=== PATIENT | male | born 1970 | race Hispanic/Latino ===

== ENCOUNTER 2017-08-30 01:35 | Emergency (ER) | payer OTHER ==
[2017-08-30] MEDS ORDERED: XYLOCAINE 1%/ EPI 1:100,000 INFILTRATI ONE (02:57)
[2017-08-30] MEDS ORDERED: NACL 0.9% 500 ML IR ONE (03:04)
[2017-08-30] MEDS ORDERED: NACL 0.9% IR ONE (03:13)
[2017-08-30] MEDS ORDERED: ATIVAN PO ONE (04:26)
[2017-08-30] MEDS ORDERED: AUGMENTIN 875 MG PO ONE (04:26)
[2017-08-30] MEDS ORDERED: BOOSTRIX IM ONE (04:26)
--- NOTE | 2017-08-30 04:46 | Emergency Department Report ---
ED Animal Bite HPI - General Chief Complaint: Animal Bite Stated Complaint: FACIAL DOG BITE Time Seen by Provider: 08/30/17 02:57 Source: patient Mode of arrival: Stretcher Limitations: No Limitations - History of Present Illness Initial Comments: 47-year-old male with a past medical history of anxiety presents to the hospital complains of dog bite to chin that occurred 45 minutes prior to arrival. Patient states his own dog bit him in his chin. Dog's vaccinations are up-to-date. Patient does not know his last tetanus. He complains of a fast 10 pain to the chin and states that heavy bleeding has resolved with wound dressing. - Related Data Home Medications Medication Instructions Recorded Confirmed Last Taken ALPRAZolam [Xanax TAB] 1 mg PO TID PRN 08/30/17 08/30/17 Unknown Triazolam 0.125 mg PO PRN PRN 08/30/17 08/30/17 Unknown lamoTRIgine [LaMICtal] 150 mg PO QDAY 08/30/17 08/30/17 Unknown Previous Rx's Medication Instructions Recorded Last Taken Type Amoxicillin/K Clav Tab [Augmentin 1 tab PO Q12HR #10 tab 08/30/17 Unknown Rx 875 mg] Allergies Allergy/AdvReac Type Severity Reaction Status Date / Time prednisone AdvReac Vomiting Verified 08/30/17 02:34 ED Review of Systems ROS: Stated complaint: FACIAL DOG BITE Other details as noted in HPI Comment: All other systems reviewed and negative Other: Constitutional: No fevers chills Eyes: No eye pain visual changes ENT: No ear pain or throat pain Neck: Denies pain Respiratory: Denies cough wheezing shortness of breath Cardiovascular: Denies chest pain, palpitations, syncope GI: Denies abdominal pain, nausea, vomiting, diarrhea : Denies dysuria, urinary frequency, or urgency Musculoskeletal: Denies back pain, joint swelling Skin: as per hpi Neurologic: Denies headache, numbness, weakness Psychiatric: Chronic anxiety ED Past Medical Hx - Past Medical History Previous Medical History?: No Hx Hypertension: No Hx CVA: No Hx Heart Attack/AMI: No Hx Congestive Heart Failure: No Hx Diabetes: No Hx Deep Vein Thrombosis: No Hx Pulmonary Embolism: No Hx Liver Disease: No Hx Renal Disease: No Hx of Cancer: No Hx Sickle Cell Disease: No Hx Arthritis: No Hx Headaches / Migraines: No Hx Seizures: No Hx Kidney Stones: No Hx Psychiatric Treatment: No Hx Asthma: No Hx COPD: No Hx Tuberculosis: No Hx Dementia: No Hx HIV: No Additional medical history: PTSD - Surgical History Past Surgical History?: Yes Additional Surgical History: ortho sugery on L knee x6 & R ankle x1 - Social History Smoking Status: Never Smoker Substance Use Type: None - Medications Home Medications: Home Medications Medication Instructions Recorded Confirmed Last Taken Type ALPRAZolam [Xanax TAB] 1 mg PO TID PRN 08/30/17 08/30/17 Unknown History Amoxicillin/K Clav Tab [Augmentin 1 tab PO Q12HR #10 tab 08/30/17 Unknown Rx 875 mg] Triazolam 0.125 mg PO PRN PRN 08/30/17 08/30/17 Unknown History lamoTRIgine [LaMICtal] 150 mg PO QDAY 08/30/17 08/30/17 Unknown History ED Physical Exam - General Limitations: No Limitations - Other Other exam information: General: No limitations, patient is alert in no acute distress Head exam: Chin laceration Eyes exam: Normal appearance ENT: Moist mucous membrane, normal oropharynx, laceration does not extend to the oropharynx Neck exam: Normal inspection, full range of motion Respiratory exam: Clear to auscultation bilateral, no wheezes, rales, crackles Cardiovascular: Normal rate and rhythm, normal heart sounds Abdomen: Soft, nondistended, and nontender, with normal bowel sounds, no rebound, or guarding Extremity: Full range of motion normal inspection no deformity Back: Normal Inspection, full range of motion, no tenderness Neurologic: Alert, oriented x3, cranial nerves intact, no motor or sensory deficit Psychiatric: normal affect, normal mood Skin: 4.5 cm concave deep .5 cm laceration to anterior chin with minimal bleeding ED Course Vital Signs 08/30/17 08/30/17 08/30/17 02:20 02:22 02:30 Temperature 98.7 F Pulse Rate 103 H 105 H Respiratory 19 20 Rate Blood Pressure 124/82 124/82 O2 Sat by Pulse 95 95 95 Oximetry 08/30/17 08/30/17 08/30/17 02:46 03:00 03:16 Temperature Pulse Rate 107 H 108 H 100 H Respiratory 19 19 35 H Rate Blood Pressure 124/82 123/90 124/82 O2 Sat by Pulse 96 97 94 Oximetry 08/30/17 08/30/17 08/30/17 03:30 03:33 03:46 Temperature Pulse Rate 95 H 94 H Respiratory 15 18 17 Rate Blood Pressure 124/82 124/82 O2 Sat by Pulse 94 97 93 Oximetry 08/30/17 04:00 Temperature Pulse Rate 103 H Respiratory 18 Rate Blood Pressure 124/82 O2 Sat by Pulse 99 Oximetry - Reevaluation(s) Reevaluation #1: 08/30/17 04:58 Patient given Augmentin, tetanus, and Ativan for chronic anxiety. - Laceration /Wound Repair Face Wound Location: face (chin) Wound Length (cm): 4 (4.5) Wound's Depth, Shape: linear (concave) Irrigated w/ Saline (ccs): 500 (diluted iodine) Betadine Prep?: Yes Anesthesia: Lidocaine w/ Epi Volume Anesthetic (ccs): 7 Wound Debrided: minimal Wound Repaired With: sutures Suture Size/Type: 4:0, nylon Number of Sutures: 9 Layer Closure?: No Sterile Dressing Applied?: Yes Critical Care Time: No Critical care attestation.: If time is entered above; I have spent that time in minutes in the direct care of this critically ill patient, excluding procedure time. ED Disposition Clinical Impression: Dog bite of face, Anxiety Disposition: DC-01 TO HOME OR SELFCARE Is pt being admited?: No Does the pt Need Aspirin: No Condition: Stable Instructions: Animal Bite (ED) Additional Instructions: Dog bites are at risk for infection. Please to continue to evaluate your phone for signs of infection as discussed in as indicated by discharge instructions. It is very important thay you take antibiotics as prescribed to try to prevent infection. You may return in 5 days or follow-up with the primary care doctor in 5 days for stitches removal. Please return if symptoms worsen Prescriptions: Amoxicillin/K Clav Tab [Augmentin 875 mg] 1 tab PO Q12HR #10 tab Referrals: AMALIA ALVA MD [Primary Care Provider] - 3-[address] [facility] [Provider Group] - 3-5 Days ANGEL SHIN JR, MD [Staff Physician] - 3-5 Days Time of Disposition: 04:58
[2017-08-30] MEDS ORDERED: NORCO 5/325 PO ONE (05:25)
[2017-08-30 06:09] VITALS: BP 131/93
== END 2017-08-30 06:24 | disposition home or self-care (01) ==
LOC: ED 01:35
DX: S01.85XA Open bite of other part of head, initial encounter (principal); F41.9 Anxiety disorder, unspecified; Z88.8 Allergy status to other drugs, medicaments and biological substances; W54.0XXA Bitten by dog, initial encounter; Y93.9 Activity, unspecified; Y92.89 Other specified places as the place of occurrence of the external cause; Y99.9 Unspecified external cause status
CPT/HCPCS: 90471; 90715

== ENCOUNTER 2017-12-09 09:40 | Emergency (ER) | payer OTHER ==
--- NOTE | 2017-12-09 10:37 | Emergency Department Report ---
ED Altered Mental Status HPI - General Chief Complaint: Altered Mental Status Stated Complaint: AMS Time Seen by Provider: 12/09/17 10:21 Source: EMS Mode of arrival: Stretcher Limitations: Altered Mental Status - History of Present Illness Initial Comments: Patient is a 31-l-ndnp-old male who is presenting with altered mental status and probable drug use. Patient states he took some large amount of drugs was brought here for altered mental status evaluation. Patient was combative on arrival. Patient is denying any homicidal suicidal thoughts or any other symptoms mainly chest pain shortness of breath nausea vomiting diarrhea. MD Complaint: altered mental status, confusion -: unknown Severity: moderate Context: drug abuse Associated Symptoms: denies other symptoms - Related Data Home Medications Medication Instructions Recorded Confirmed Last Taken ALPRAZolam [Xanax TAB] 1 mg PO TID PRN 08/30/17 08/30/17 Unknown Triazolam 0.125 mg PO PRN PRN 08/30/17 08/30/17 Unknown lamoTRIgine [LaMICtal] 150 mg PO QDAY 08/30/17 08/30/17 Unknown Previous Rx's Medication Instructions Recorded Last Taken Type Amoxicillin/K Clav Tab [Augmentin 1 tab PO Q12HR #10 tab 08/30/17 Unknown Rx 875 mg] HYDROcodone/APAP 5-325 [[place] 1 each PO Q6HR PRN #15 tablet 08/30/17 Unknown Rx 5/325] Allergies Allergy/AdvReac Type Severity Reaction Status Date / Time prednisone AdvReac Vomiting Verified 08/30/17 02:34 ED Review of Systems ROS: Stated complaint: AMS Other details as noted in HPI Comment: Unobtainable due to pts medical conditions ED Past Medical Hx - Past Medical History Previous Medical History?: Yes Hx Hypertension: No Hx CVA: No Hx Heart Attack/AMI: No Hx Congestive Heart Failure: No Hx Diabetes: No Hx Deep Vein Thrombosis: No Hx Pulmonary Embolism: No Hx Liver Disease: No Hx Renal Disease: No Hx Sickle Cell Disease: No Hx Arthritis: No Hx Headaches / Migraines: No Hx Seizures: No Hx Kidney Stones: No Hx Psychiatric Treatment: No Hx Asthma: No Hx COPD: No Hx Tuberculosis: No Hx Dementia: No Hx HIV: No Additional medical history: PTSD - Surgical History Past Surgical History?: Yes Additional Surgical History: ortho sugery on L knee x6 & R ankle x1 - Social History Smoking Status: Unknown if ever smoked - Medications Home Medications: Home Medications Medication Instructions Recorded Confirmed Last Taken Type ALPRAZolam [Xanax TAB] 1 mg PO TID PRN 08/30/17 08/30/17 Unknown History Amoxicillin/K Clav Tab [Augmentin 1 tab PO Q12HR #10 tab 08/30/17 Unknown Rx 875 mg] HYDROcodone/APAP 5-325 [[place] 1 each PO Q6HR PRN #15 tablet 08/30/17 Unknown Rx 5/325] Triazolam 0.125 mg PO PRN PRN 08/30/17 08/30/17 Unknown History lamoTRIgine [LaMICtal] 150 mg PO QDAY 08/30/17 08/30/17 Unknown History ED Physical Exam - General Limitations: Altered Mental Status General appearance: alert, appears intoxicated - Head Head exam: Present: atraumatic, normocephalic - Eye Eye exam: Present: normal appearance - ENT ENT exam: Present: mucous membranes moist - Neck Neck exam: Present: normal inspection - Respiratory Respiratory exam: Present: normal lung sounds bilaterally. Absent: respiratory distress, wheezes, rales, rhonchi - Cardiovascular Cardiovascular Exam: Present: regular rate, normal rhythm. Absent: systolic murmur, diastolic murmur, rubs, gallop - GI/Abdominal GI/Abdominal exam: Present: soft, normal bowel sounds. Absent: distended, tenderness, guarding, rebound - Rectal Rectal exam: Present: deferred - Extremities Exam Extremities exam: Present: normal inspection - Back Exam Back exam: Present: normal inspection - Neurological Exam Neurological exam: Present: alert, oriented X3, abnormal gait - Psychiatric Psychiatric exam: Present: normal affect, normal mood, agitated - Skin Skin exam: Present: warm, dry, intact, normal color. Absent: rash ED Course Vital Signs 12/09/17 11:45 Temperature 98.4 F Pulse Rate 82 Respiratory 18 Rate Blood Pressure 139/95 [Left] O2 Sat by Pulse 98 Oximetry - Lab Data Result diagrams: 12/09/17 11:30 12/09/17 11:30 Lab Results 12/09/17 12/09/17 12/09/17 Range/Units 11:05 11:05 11:30 WBC (4.5-11.0) K/mm3 RBC (3.65-5.03) M/mm3 Hgb (11.8-15.2) gm/dl Hct (35.5-45.6) % MCV (84-94) fl MCH (28-32) pg MCHC (32-34) % RDW (13.2-15.2) % Plt Count (140-440) K/mm3 Lymph % (Auto) (13.4-35.0) % [place] % (Auto) (0.0-7.3) % Eos % (Auto) (0.0-4.3) % Baso % (Auto) (0.0-1.8) % Lymph # (1.2-5.4) K/mm3 [place] # (0.0-0.8) K/mm3 Eos # (0.0-0.4) K/mm3 Baso # (0.0-0.1) K/mm3 Seg Neutrophils % (40.0-70.0) % Seg Neutrophils # (1.8-7.7) K/mm3 Sodium 141 (137-145) mmol/L Potassium 3.7 (3.6-5.0) mmol/L Chloride 97.3 L (98-107) mmol/L Carbon Dioxide 26 (22-30) mmol/L Anion Gap 21 mmol/L BUN 13 (9-20) mg/dL Creatinine 1.2 (0.8-1.5) mg/dL Estimated GFR > 60 ml/min BUN/Creatinine Ratio 11 % Glucose 93 (75-100) mg/dL Calcium 9.1 (8.4-10.2) mg/dL Urine Color Yellow (Yellow) Urine Turbidity Clear (Clear) Urine pH 5.0 (5.0-7.0) Ur Specific [place] 1.012 (1.003-1.030) Urine Protein <15 mg/dl (Negative) mg/dL Urine Glucose (UA) Neg (Negative) mg/dL Urine Ketones Tr (Negative) mg/dL Urine Blood Neg (Negative) Urine Nitrite Neg (Negative) Urine Bilirubin Neg (Negative) Urine Urobilinogen < 2.0 (<2.0) mg/dL Ur Leukocyte Esterase Neg (Negative) Urine WBC (Auto) 2.0 (0.0-6.0) /HPF Urine RBC (Auto) 1.0 (0.0-6.0) /HPF U Epithel Cells (Auto) < 1.0 (0-13.0) /HPF Urine Bacteria (Auto) 1+ (Negative) /HPF Urine Mucus Few /HPF Salicylates (2.8-20.0) mg/dL Urine Opiates Screen Presumptive negative Urine Methadone Screen Presumptive negative Acetaminophen (10.0-30.0) ug/mL Ur Barbiturates Screen Presumptive negative Ur Phencyclidine Scrn Presumptive negative Ur Amphetamines Screen Presumptive positive U Benzodiazepines Scrn Presumptive positive Urine Cocaine Screen Presumptive negative U Marijuana (THC) Screen Presumptive negative Drugs of Abuse Note Disclamer Plasma/Serum Alcohol (0-0.07) gm% 12/09/17 12/09/17 12/09/17 Range/Units 11:30 11:30 11:30 WBC 8.2 (4.5-11.0) K/mm3 RBC 4.57 (3.65-5.03) M/mm3 Hgb 14.2 (11.8-15.2) gm/dl Hct 41.8 (35.5-45.6) % MCV 92 (84-94) fl MCH 31 (28-32) pg MCHC 34 (32-34) % RDW 13.2 (13.2-15.2) % Plt Count 240 (140-440) K/mm3 Lymph % (Auto) 13.5 (13.4-35.0) % [place] % (Auto) 9.8 H (0.0-7.3) % Eos % (Auto) 0.5 (0.0-4.3) % Baso % (Auto) 1.3 (0.0-1.8) % Lymph # 1.1 L (1.2-5.4) K/mm3 [place] # 0.8 (0.0-0.8) K/mm3 Eos # 0.0 (0.0-0.4) K/mm3 Baso # 0.1 (0.0-0.1) K/mm3 Seg Neutrophils % 74.9 H (40.0-70.0) % Seg Neutrophils # 6.1 (1.8-7.7) K/mm3 Sodium (137-145) mmol/L Potassium (3.6-5.0) mmol/L Chloride (98-107) mmol/L Carbon Dioxide (22-30) mmol/L Anion Gap mmol/L BUN (9-20) mg/dL Creatinine (0.8-1.5) mg/dL Estimated GFR ml/min BUN/Creatinine Ratio % Glucose (75-100) mg/dL Calcium (8.4-10.2) mg/dL Urine Color (Yellow) Urine Turbidity (Clear) Urine pH (5.0-7.0) Ur Specific [place] (1.003-1.030) Urine Protein (Negative) mg/dL Urine Glucose (UA) (Negative) mg/dL Urine Ketones (Negative) mg/dL Urine Blood (Negative) Urine Nitrite (Negative) Urine Bilirubin (Negative) Urine Urobilinogen (<2.0) mg/dL Ur Leukocyte Esterase (Negative) Urine WBC (Auto) (0.0-6.0) /HPF Urine RBC (Auto) (0.0-6.0) /HPF U Epithel Cells (Auto) (0-13.0) /HPF Urine Bacteria (Auto) (Negative) /HPF Urine Mucus /HPF Salicylates < 0.3 L (2.8-20.0) mg/dL Urine Opiates Screen Urine Methadone Screen Acetaminophen (10.0-30.0) ug/mL Ur Barbiturates Screen Ur Phencyclidine Scrn Ur Amphetamines Screen U Benzodiazepines Scrn Urine Cocaine Screen U Marijuana (THC) Screen Drugs of Abuse Note Plasma/Serum Alcohol < 0.01 (0-0.07) gm% 12/09/17 Range/Units 11:30 WBC (4.5-11.0) K/mm3 RBC (3.65-5.03) M/mm3 Hgb (11.8-15.2) gm/dl Hct (35.5-45.6) % MCV (84-94) fl MCH (28-32) pg MCHC (32-34) % RDW (13.2-15.2) % Plt Count (140-440) K/mm3 Lymph % (Auto) (13.4-35.0) % [place] % (Auto) (0.0-7.3) % Eos % (Auto) (0.0-4.3) % Baso % (Auto) (0.0-1.8) % Lymph # (1.2-5.4) K/mm3 [place] # (0.0-0.8) K/mm3 Eos # (0.0-0.4) K/mm3 Baso # (0.0-0.1) K/mm3 Seg Neutrophils % (40.0-70.0) % Seg Neutrophils # (1.8-7.7) K/mm3 Sodium (137-145) mmol/L Potassium (3.6-5.0) mmol/L Chloride (98-107) mmol/L Carbon Dioxide (22-30) mmol/L Anion Gap mmol/L BUN (9-20) mg/dL Creatinine (0.8-1.5) mg/dL Estimated GFR ml/min BUN/Creatinine Ratio % Glucose (75-100) mg/dL Calcium (8.4-10.2) mg/dL Urine Color (Yellow) Urine Turbidity (Clear) Urine pH (5.0-7.0) Ur Specific [place] (1.003-1.030) Urine Protein (Negative) mg/dL Urine Glucose (UA) (Negative) mg/dL Urine Ketones (Negative) mg/dL Urine Blood (Negative) Urine Nitrite (Negative) Urine Bilirubin (Negative) Urine Urobilinogen (<2.0) mg/dL Ur Leukocyte Esterase (Negative) Urine WBC (Auto) (0.0-6.0) /HPF Urine RBC (Auto) (0.0-6.0) /HPF U Epithel Cells (Auto) (0-13.0) /HPF Urine Bacteria (Auto) (Negative) /HPF Urine Mucus /HPF Salicylates (2.8-20.0) mg/dL Urine Opiates Screen Urine Methadone Screen Acetaminophen < 15.0 (10.0-30.0) ug/mL Ur Barbiturates Screen Ur Phencyclidine Scrn Ur Amphetamines Screen U Benzodiazepines Scrn Urine Cocaine Screen U Marijuana (THC) Screen Drugs of Abuse Note Plasma/Serum Alcohol (0-0.07) gm% - Medical Decision Making Patient's was consulted over the phone about the patient's presentation. Patient's states that whenever he gets his prescription for Xanax she normally gives him his prescriptions when he tries to manage this medication himself he ends up overdosing and oftentimes ends up in the hospital. Patient is not homicidal suicidal he is beginning to sober up at this time and will be discharged home Critical care attestation.: If time is entered above; I have spent that time in minutes in the direct care of this critically ill patient, excluding procedure time. ED Disposition Clinical Impression: Benzodiazepine abuse Disposition: DC-01 TO HOME OR SELFCARE Is pt being admited?: No Does the pt Need Aspirin: No Condition: Stable Referrals: SINDY SHETH MD [Primary Care Provider] - 3-5 Days
[2017-12-09 11:35] LABS: Bacteria,Urine 1+ /HPF (Negative); Bilirubin,Urine NEG (Negative); Blood,Urine NEG (Negative); Color,Urine Yellow (Yellow); Mucus,Urine FEW /HPF; Nitrite,Urine NEG (Negative); Protein,Urine <15 mg/dL mg/dL (Negative); Urobilinogen,Urine < 2.0 mg/dL (<2.0)
[2017-12-09 11:52] LABS: Cannabinoid Screen,Urine PRESUMPTIVE NEGATIVE; Cocaine Screen,Urine PRESUMPTIVE NEGATIVE; Methadone Screen,Urine PRESUMPTIVE NEGATIVE; Opiate Screen,Urine PRESUMPTIVE NEGATIVE
[2017-12-09 12:04] LABS: Amphetamine Screen,Urine PRESUMPTIVE POSITIVE; Benzodiazepines Screen,Urine PRESUMPTIVE POSITIVE
[2017-12-09 12:18] LABS: Basophils # (Auto) 0.1 K/mm3 (0.0-0.1); Basophils % (Auto) 1.3 % (0.0-1.8); Eosinophils % (Auto) 0.5 % (0.0-4.3); Hematocrit 41.8 % (35.5-45.6); Hemoglobin 14.2 gm/dl (11.8-15.2); Lymphocytes # (Auto) 1.1 K/mm3 (1.2-5.4); Lymphocytes % (Auto) 13.5 % (13.4-35.0); Mean Corpuscular HGB Conc 34 % (32-34); Mean Corpuscular Hemoglobin 31 pg (28-32); Mean Corpuscular Volume 92 fl (84-94); Monocytes # (Auto) 0.8 K/mm3 (0.0-0.8); Monocytes % (Auto) 9.8 % (0.0-7.3); Platelet Count 240 K/mm3 (140-440); Red Blood Count 4.57 M/mm3 (3.65-5.03); Red Cell Distribution Width 13.2 % (13.2-15.2)
[2017-12-09 12:21] LABS: BUN/Creatinine Ratio 11; Blood Urea Nitrogen 13 mg/dL (9-20); Calcium 9.1 mg/dL (8.4-10.2); Hemolysis Index 10
[2017-12-09 21:20] VITALS: BP 130/88
== END 2017-12-09 21:15 | disposition home or self-care (01) ==
LOC: EEVIPCON 09:40 → ED 09:40
DX: F13.10 Sedative, hypnotic or anxiolytic abuse, uncomplicated (principal); F43.10 Post-traumatic stress disorder, unspecified; Z98.890 Other specified postprocedural states; Z88.8 Allergy status to other drugs, medicaments and biological substances; Z79.899 Other long term (current) drug therapy
CPT/HCPCS: 36415; 80048; 80307; 81001; 85025; 99283; G0480; 80320

== ENCOUNTER 2018-03-26 11:42 | Inpatient (IN) | payer OTHER ==
[2018-03-26] MEDS ORDERED: BOOSTRIX IM ONE (12:39)
[2018-03-26] MEDS ORDERED: NACL 0.9% 1000 ML 1,000 ML IV ONE ×2 (12:40→14:08)
--- NOTE | 2018-03-26 12:44 | Emergency Department Report ---
HPI - General Chief Complaint: Altered Mental Status Time Seen by Provider: 03/26/18 12:33 - HPI HPI: Room 21 The patient is a 47-year-old male presenting with a chief complaint of fall. Neighbors reportedly called police after the patient was found lying in the front yard. The patient told nursing he was chasing a dog out of a car and tried to jump a fence and fell. Patient admitted to taking Xanax and Subutex prior to arrival and subsequently a poor historian Location: Mental state, see above Duration: [See above] Quality: [See above] Severity: Moderate Modifying factors: [see above] Context: [see above] Mode of transportation: [not driving] ED Past Medical Hx - Past Medical History Additional medical history: PTSD - Surgical History Past Surgical History?: No Additional Surgical History: ortho sugery on L knee x6 & R ankle x1 - Family History Family history: no significant - Social History Smoking Status: Never Smoker Substance Use Type: Prescribed - Medications Home Medications: Home Medications Medication Instructions Recorded Confirmed Last Taken Type ALPRAZolam [Xanax TAB] 1 mg PO TID PRN 08/30/17 08/30/17 Unknown History Amoxicillin/K Clav Tab [Augmentin 1 tab PO Q12HR #10 tab 08/30/17 Unknown Rx 875 mg] HYDROcodone/APAP 5-325 [[place] 1 each PO Q6HR PRN #15 tablet 08/30/17 Unknown Rx 5/325] Triazolam 0.125 mg PO PRN PRN 08/30/17 08/30/17 Unknown History lamoTRIgine [LaMICtal] 150 mg PO QDAY 08/30/17 08/30/17 Unknown History ED Review of Systems ROS: Stated complaint: AMS Other details as noted in HPI Comment: Unobtainable due to pts medical conditions Physical Exam - Physical Exam Vital Signs: Vital Signs 03/26/18 03/26/18 03/26/18 11:47 12:00 12:23 Temperature 98.5 F Pulse Rate 123 H 118 H 115 H Respiratory 17 Rate Blood Pressure 129/84 O2 Sat by Pulse 91 Oximetry 03/26/18 12:30 Temperature Pulse Rate 105 H Respiratory 16 Rate Blood Pressure 123/86 O2 Sat by Pulse Oximetry Physical Exam: GENERAL: The patient is well-developed well-nourished male sleeping on stretcher not appearing to be in acute distress. [] HEENT: Normocephalic. Abrasions to face. Extraocular motions are intact. Patient has moist mucous membranes. NECK: Supple. Trachea midline CHEST/LUNGS: Clear to auscultation. There is no respiratory distress noted. HEART/CARDIOVASCULAR: Regular. There is no tachycardia. There is no gallop rub or murmur. ABDOMEN: Abdomen is soft, nontender. Patient has normal bowel sounds. There is no abdominal distention. SKIN: There are abrasions to bilateral knees and toes of the left foot. There are abrasions to the face. There is no edema. There is no diaphoresis. NEURO: The patient is awake but appears intoxicated. The patient is cooperative. The patient has no focal neurologic deficits. The patient has normal speech MUSCULOSKELETAL: Patient moves all extremities. There is no limitation range of motion. ED Course Vital Signs 03/26/18 03/26/18 03/26/18 11:47 12:00 12:23 Temperature 98.5 F Pulse Rate 123 H 118 H 115 H Respiratory 17 Rate Blood Pressure 129/84 O2 Sat by Pulse 91 Oximetry 03/26/18 12:30 Temperature Pulse Rate 105 H Respiratory 16 Rate Blood Pressure 123/86 O2 Sat by Pulse Oximetry ED Medical Decision Making - Lab Data Result diagrams: 03/26/18 12:39 03/26/18 12:39 Laboratory Tests 03/26/18 03/26/18 03/26/18 12:39 12:39 12:39 WBC 8.0 RBC 4.19 Hgb 13.1 Hct 38.1 MCV 91 MCH 31 MCHC 35 H RDW 13.0 L Plt Count 237 Lymph % (Auto) 12.0 L [place] % (Auto) 11.5 H Eos % (Auto) 0.3 Baso % (Auto) 0.9 Lymph # 1.0 L [place] # 0.9 H Eos # 0.0 Baso # 0.1 Seg Neutrophils % 75.3 H Seg Neutrophils # 6.0 Sodium 144 Potassium 3.9 Chloride 104.8 Carbon Dioxide 24 Anion Gap 19 BUN 22 H Creatinine 1.2 Estimated GFR > 60 BUN/Creatinine Ratio 18 Glucose 102 H Calcium 8.1 L Total Bilirubin 0.30 AST 38 ALT 18 Alkaline Phosphatase 94 Ammonia Total Creatine Kinase CK-MB (CK-2) CK-MB (CK-2) Rel Index Troponin T Total Protein 6.0 L Albumin 4.0 Albumin/Globulin Ratio 2.0 Plasma/Serum Alcohol < 0.01 03/26/18 03/26/18 12:47 12:47 WBC RBC Hgb Hct MCV MCH MCHC RDW Plt Count Lymph % (Auto) [place] % (Auto) Eos % (Auto) Baso % (Auto) Lymph # [place] # Eos # Baso # Seg Neutrophils % Seg Neutrophils # Sodium Potassium Chloride Carbon Dioxide Anion Gap BUN Creatinine Estimated GFR BUN/Creatinine Ratio Glucose Calcium Total Bilirubin AST ALT Alkaline Phosphatase Ammonia 33.0 Total Creatine Kinase 2349 H CK-MB (CK-2) 28.7 H CK-MB (CK-2) Rel Index 1.2 Troponin T < 0.010 Total Protein Albumin Albumin/Globulin Ratio Plasma/Serum Alcohol UDS, UA pending - EKG Data -: EKG Interpreted by Me EKG shows normal: sinus rhythm Rate: tachycardia (120 bpm) - EKG Data When compared to previous EKG there are: previous EKG unavailable Interpretation: nonspecific ST-T wave adam - Radiology Data Radiology results: report reviewed (CT head, CT cervical spine) CT head (read by radiologist)-no acute intracranial abnormality CT cervical spine (read by radiologist)- no acute fracture - Differential Diagnosis closed head injury, ICH, polysubstance abuse, intoxication, Critical care attestation.: If time is entered above; I have spent that time in minutes in the direct care of this critically ill patient, excluding procedure time. ED Disposition Clinical Impression: Altered mental status, Rhabdomyolysis Disposition: 09 OP ADMIT IP TO THIS HOSP Is pt being admited?: Yes Does the pt Need Aspirin: Yes Condition: Fair Referrals: PRIMARY CARE, [Primary Care Provider] - 3-5 Days Time of Disposition: 14:41 (hospitalist notified (Dr Beck))
--- NOTE | 2018-03-26 13:23 | Cat Scan Report ---
CT scan of head without IV contrast: History: Head injury after fall. Findings: Ventricles are normal in size and midline in location. No evidence of acute ischemic, hemorrhage or mass. No extra-axial fluid collection. Normal brainstem cerebellum. Normal sinuses and mastoid air cells. Impression: No acute intracranial abnormality.
--- NOTE | 2018-03-26 13:25 | Cat Scan Report ---
CT scan of cervical spine: History: Head injury after fall. Findings: The odontoid process and lateral mass anterior and posterior arch of the atlas and the occipital condyle appears normal. Normal height of vertebral bodies 2 decrease in height of C4-C5 C5-C6 with evidence of cervical spondylosis. Normal prevertebral soft tissue. No fracture. Impression: Cervical spondylosis. No evidence of acute fracture.
[2018-03-26 13:30] LABS: Creatine Kinase MB 28.7 ng/mL (0.0-4.0)
[2018-03-26 13:58] LABS: Basophils # (Auto) 0.1 K/mm3 (0.0-0.1); Basophils % (Auto) 0.9 % (0.0-1.8); Eosinophils % (Auto) 0.3 % (0.0-4.3); Hematocrit 38.1 % (35.5-45.6); Hemoglobin 13.1 gm/dl (11.8-15.2); Mean Corpuscular HGB Conc 35 % (32-34); Mean Corpuscular Hemoglobin 31 pg (28-32); Mean Corpuscular Volume 91 fl (84-94); Monocytes # (Auto) 0.9 K/mm3 (0.0-0.8); Monocytes % (Auto) 11.5 % (0.0-7.3); Platelet Count 237 K/mm3 (140-440); Red Blood Count 4.19 M/mm3 (3.65-5.03)
[2018-03-26 14:05] LABS: Alanine Aminotransferase 18 units/L (7-56); BUN/Creatinine Ratio 18; Blood Urea Nitrogen 22 mg/dL (9-20); Calcium 8.1 mg/dL (8.4-10.2); Hemolysis Index 23
[2018-03-26] MEDS ORDERED: ASPIRIN PO ONE (14:11)
[2018-03-26 15:00] LABS: Bilirubin,Urine NEG (Negative); Blood,Urine SM (Negative); Color,Urine Yellow (Yellow); Mucus,Urine FEW /HPF; Protein,Urine <15 mg/dL mg/dL (Negative); Urobilinogen,Urine < 2.0 mg/dL (<2.0)
[2018-03-26 15:01] LABS: Cannabinoid Screen,Urine PRESUMPTIVE NEGATIVE; Cocaine Screen,Urine PRESUMPTIVE NEGATIVE; Methadone Screen,Urine PRESUMPTIVE NEGATIVE; Opiate Screen,Urine PRESUMPTIVE NEGATIVE
[2018-03-26 15:13] LABS: Amphetamine Screen,Urine PRESUMPTIVE POSITIVE; Benzodiazepines Screen,Urine PRESUMPTIVE POSITIVE
[2018-03-26] MEDS ORDERED: TRIAZOLAM 0.125 MG PO PRN (17:02)
--- NOTE | 2018-03-26 17:02 | History and Physical Report ---
History of Present Illness Date of examination: 03/26/18 Date of admission: 03/26/2018 Chief complaint: Chief complaint: Altered sensorium since morning History of present illness: History of present illness: 46-year-old male with history of PTSD brought in because patient was found lying in the front yard. Patient says that he was seizing and dog out of her car and tried to jump her friends and fell on. Patient admitted taking Xanax and Ciprodex prior and subsequently with altered sensorium. No fever no chills. No shortness of breath. No chest pain. No palpitations. No dysuria. No drug overdose. No exacerbating or relieving factors. - Past Medical History Additional medical history: PTSD - Surgical History Past Surgical History?: No Additional Surgical History: ortho sugery on L knee x6 & R ankle x1 - Family History Family history: no significant - Social History Smoking Status: Never Smoker Substance Use Type: Prescribed - Medications Home Medications: Home Medications Medication Instructions Recorded Confirmed Last Taken Type ALPRAZolam [Xanax TAB] 1 mg PO TID PRN 08/30/17 08/30/17 Unknown History Amoxicillin/K Clav Tab [Augmentin 1 tab PO Q12HR #10 tab 08/30/17 Unknown Rx 875 mg] HYDROcodone/APAP 5-325 [[place] 1 each PO Q6HR PRN #15 tablet 08/30/17 Unknown Rx 5/325] Triazolam 0.125 mg PO PRN PRN 08/30/17 08/30/17 Unknown History lamoTRIgine [LaMICtal] 150 mg PO QDAY 08/30/17 08/30/17 Unknown History Review of Systems ROS: Stated complaint: AMS Other details as noted in HPI Comment: Unobtainable due to pts medical conditions 14 point review of systems attempted. Medications and Allergies Allergies Allergy/AdvReac Type Severity Reaction Status Date / Time prednisone AdvReac Vomiting Verified 08/30/17 02:34 Home Medications Medication Instructions Recorded Confirmed Last Taken Type ALPRAZolam [Xanax TAB] 1 mg PO TID PRN 08/30/17 08/30/17 Unknown History Amoxicillin/K Clav Tab [Augmentin 1 tab PO Q12HR #10 tab 08/30/17 Unknown Rx 875 mg] HYDROcodone/APAP 5-325 [[place] 1 each PO Q6HR PRN #15 tablet 08/30/17 Unknown Rx 5/325] Triazolam 0.125 mg PO PRN PRN 08/30/17 08/30/17 Unknown History lamoTRIgine [LaMICtal] 150 mg PO QDAY 08/30/17 08/30/17 Unknown History Active Meds: Active Medications Sodium Chloride (Nacl 0.9% 1000 Ml) 1,000 mls @ 250 mls/hr IV ONCE ONE Stop: 03/26/18 18:07 Last Admin: 03/26/18 14:19 Dose: 250 mls/hr Exam - Physical Exam Narrative exam: Lying in bed comfortably more alert and oriented Abrasions to face knees and feet - Constitutional Vitals: Temp Pulse Resp BP Pulse Ox 98.5 F 101 H 15 137/94 95 03/26/18 12:00 03/26/18 14:30 03/26/18 14:30 03/26/18 14:30 03/26/18 14:30 General appearance: Present: no acute distress, well-nourished, other ( Abrasions to face knees and feet) - EENT Eyes: Present: PERRL ENT: hearing intact, clear oral mucosa - Neck Neck: Present: supple, normal ROM - Respiratory Respiratory effort: normal Respiratory: bilateral: CTA - Cardiovascular Heart rate: 70 Rhythm: regular Heart Sounds: Present: S1 & S2. Absent: rub, click - Extremities Extremities: no ischemia, pulses intact, pulses symmetrical, No edema Peripheral Pulses: within normal limits - Abdominal General gastrointestinal: Present: soft, non-tender, non-distended, normal bowel sounds Male genitourinary: Present: normal - Rectal Rectal Exam: deferred - Integumentary Integumentary: Present: clear, warm, dry - Musculoskeletal Musculoskeletal: gait normal, strength equal bilaterally - Psychiatric Psychiatric: appropriate mood/affect, intact judgment & insight - Neurologic Neurologic: CNII-XII intact, moves all extremities - Allied Health Allied health notes reviewed: nursing, case management Results - Labs CBC & Chem 7: 03/26/18 12:39 03/26/18 12:39 Labs: Laboratory Last Values WBC 8.0 K/mm3 (4.5-11.0) 03/26/18 12:39 RBC 4.19 M/mm3 (3.65-5.03) 03/26/18 12:39 Hgb 13.1 gm/dl (11.8-15.2) 03/26/18 12:39 Hct 38.1 % (35.5-45.6) 03/26/18 12:39 MCV 91 fl (84-94) 03/26/18 12:39 MCH 31 pg (28-32) 03/26/18 12:39 MCHC 35 % (32-34) H 03/26/18 12:39 RDW 13.0 % (13.2-15.2) L 03/26/18 12:39 Plt Count 237 K/mm3 (140-440) 03/26/18 12:39 Lymph % (Auto) 12.0 % (13.4-35.0) L 03/26/18 12:39 [place] % (Auto) 11.5 % (0.0-7.3) H 03/26/18 12:39 Eos % (Auto) 0.3 % (0.0-4.3) 03/26/18 12:39 Baso % (Auto) 0.9 % (0.0-1.8) 03/26/18 12:39 Lymph # 1.0 K/mm3 (1.2-5.4) L 03/26/18 12:39 [place] # 0.9 K/mm3 (0.0-0.8) H 03/26/18 12:39 Eos # 0.0 K/mm3 (0.0-0.4) 03/26/18 12:39 Baso # 0.1 K/mm3 (0.0-0.1) 03/26/18 12:39 Seg Neutrophils % 75.3 % (40.0-70.0) H 03/26/18 12:39 Seg Neutrophils # 6.0 K/mm3 (1.8-7.7) 03/26/18 12:39 Sodium 144 mmol/L (137-145) 03/26/18 12:39 Potassium 3.9 mmol/L (3.6-5.0) 03/26/18 12:39 Chloride 104.8 mmol/L (98-107) 03/26/18 12:39 Carbon Dioxide 24 mmol/L (22-30) 03/26/18 12:39 Anion Gap 19 mmol/L 03/26/18 12:39 BUN 22 mg/dL (9-20) H 03/26/18 12:39 Creatinine 1.2 mg/dL (0.8-1.5) 03/26/18 12:39 Estimated GFR > 60 ml/min 03/26/18 12:39 BUN/Creatinine Ratio 18 % 03/26/18 12:39 Glucose 102 mg/dL (75-100) H 03/26/18 12:39 Calcium 8.1 mg/dL (8.4-10.2) L 03/26/18 12:39 Total Bilirubin 0.30 mg/dL (0.1-1.2) 03/26/18 12:39 AST 38 units/L (5-40) 03/26/18 12:39 ALT 18 units/L (7-56) 03/26/18 12:39 Alkaline Phosphatase 94 units/L (35-129) 03/26/18 12:39 Ammonia 33.0 umol/L (25-60) 03/26/18 12:47 Total Creatine Kinase 2349 units/L (55-170) H 03/26/18 12:47 CK-MB (CK-2) 28.7 ng/mL (0.0-4.0) H 03/26/18 12:47 CK-MB (CK-2) Rel Index 1.2 (0-4) 03/26/18 12:47 Troponin T < 0.010 ng/mL (0.00-0.029) 03/26/18 12:47 Total Protein 6.0 g/dL (6.3-8.2) L 03/26/18 12:39 Albumin 4.0 g/dL (3.9-5) 03/26/18 12:39 Albumin/Globulin Ratio 2.0 % 03/26/18 12:39 Urine Color Yellow (Yellow) 03/26/18 14:20 Urine Turbidity Clear (Clear) 03/26/18 14:20 Urine pH 5.0 (5.0-7.0) 03/26/18 14:20 Ur Specific [place] 1.016 (1.003-1.030) 03/26/18 14:20 Urine Protein <15 mg/dl mg/dL (Negative) 03/26/18 14:20 Urine Glucose (UA) Neg mg/dL (Negative) 03/26/18 14:20 Urine Ketones Neg mg/dL (Negative) 03/26/18 14:20 Urine Blood Sm (Negative) 03/26/18 14:20 Urine Nitrite Neg (Negative) 03/26/18 14:20 Urine Bilirubin Neg (Negative) 03/26/18 14:20 Urine Urobilinogen < 2.0 mg/dL (<2.0) 03/26/18 14:20 Ur Leukocyte Esterase Tr (Negative) 03/26/18 14:20 Urine WBC (Auto) 4.0 /HPF (0.0-6.0) 03/26/18 14:20 Urine RBC (Auto) 10.0 /HPF (0.0-6.0) 03/26/18 14:20 Uric Acid Crystals Few 03/26/18 14:20 Urine Mucus Few /HPF 03/26/18 14:20 Urine Yeast (Budding) Few /HPF 03/26/18 14:20 Urine Opiates Screen Presumptive negative 03/26/18 Unknown Urine Methadone Screen Presumptive negative 03/26/18 Unknown Ur Barbiturates Screen Presumptive negative 03/26/18 Unknown Ur Phencyclidine Scrn Presumptive negative 03/26/18 Unknown Ur Amphetamines Screen Presumptive positive 03/26/18 Unknown U Benzodiazepines Scrn Presumptive positive 03/26/18 Unknown Urine Cocaine Screen Presumptive negative 03/26/18 Unknown U Marijuana (THC) Screen Presumptive negative 03/26/18 Unknown Drugs of Abuse Note Disclamer 03/26/18 Unknown Plasma/Serum Alcohol < 0.01 % (0-0.07) 03/26/18 12:39 Short CBC 03/26/18 Range/Units 12:39 WBC 8.0 (4.5-11.0) K/mm3 Hgb 13.1 (11.8-15.2) gm/dl Hct 38.1 (35.5-45.6) % Plt Count 237 (140-440) K/mm3 BMP 03/26/18 12:39 Sodium 144 Potassium 3.9 Chloride 104.8 Carbon Dioxide 24 BUN 22 H Creatinine 1.2 Glucose 102 H Calcium 8.1 L Cardiac Enzymes 03/26/18 03/26/18 Range/Units 12:47 17:41 Total Creatine Kinase 2349 H 2608 H (55-170) units/L CK-MB (CK-2) 28.7 H (0.0-4.0) ng/mL Troponin T < 0.010 (0.00-0.029) ng/mL Liver Function 03/26/18 Range/Units 12:39 Total Bilirubin 0.30 (0.1-1.2) mg/dL AST 38 (5-40) units/L ALT 18 (7-56) units/L Alkaline Phosphatase 94 (35-129) units/L Albumin 4.0 (3.9-5) g/dL Urine 03/26/18 Range/Units 14:20 Urine Color Yellow (Yellow) Urine pH 5.0 (5.0-7.0) Ur Specific [place] 1.016 (1.003-1.030) Urine Protein <15 mg/dl (Negative) mg/dL Urine Glucose (UA) Neg (Negative) mg/dL Assessment and Plan Advance Directives: Yes (full code) VTE prophylaxis?: Chemical Plan of care discussed with patient/family: Yes - Patient Problems (1) Rhabdomyolysis Current Visit: Yes Status: Acute Qualifiers: Rhabdomyolysis type: traumatic Plan to address problem: IV fluids for now and check creatinine kinase. Mild to moderate rhabdomyolysis. If CK is trending down and patient can be discharged tomorrow. Observation (2) Altered mental status Current Visit: Yes Status: Acute Plan to address problem: Resolved--probably secondary to Subutex and Xanax (3) DVT prophylaxis Current Visit: Yes Status: Acute Plan to address problem: Lovenox/heparin
[2018-03-26] MEDS ORDERED: SODIUM CHLORIDE FLUSH SYRINGE 10 ML IV PRN (17:12)
[2018-03-26] MEDS ORDERED: ZOFRAN IV PRN (17:12)
[2018-03-26] MEDS ORDERED: TYLENOL PO PRN (17:12)
[2018-03-26] MEDS ORDERED: NON-FORMULARY (Lamotrigine [Lamictal] 150 MG) PO SCH (17:15)
[2018-03-26] MEDS ORDERED: D5NS 1,000 ML IV ONE (17:47)
[2018-03-26] MEDS: D5NS 1,000 ML IV SCH (17:55)
[2018-03-26] MEDS: SODIUM CHLORIDE FLUSH SYRINGE 10 ML IV SCH (21:43)
[2018-03-26] MEDS: PEPCID IV SCH (21:43)
[2018-03-26] MEDS: LOVENOX SUB-Q SCH (22:43)
[2018-03-27] MEDS: D5NS 1,000 ML IV SCH ×2 (03:22→13:06)
[2018-03-27 06:26] LABS: Basophils % (Auto) 0.4 % (0.0-1.8); Eosinophils # (Auto) 0.1 K/mm3 (0.0-0.4); Eosinophils % (Auto) 0.7 % (0.0-4.3); Hematocrit 41.2 % (35.5-45.6); Hemoglobin 13.7 gm/dl (11.8-15.2); Lymphocytes # (Auto) 0.6 K/mm3 (1.2-5.4); Lymphocytes % (Auto) 7.3 % (13.4-35.0); Mean Corpuscular HGB Conc 33 % (32-34); Mean Corpuscular Hemoglobin 31 pg (28-32); Mean Corpuscular Volume 94 fl (84-94); Monocytes # (Auto) 0.9 K/mm3 (0.0-0.8); Monocytes % (Auto) 10.8 % (0.0-7.3); Red Blood Count 4.41 M/mm3 (3.65-5.03); Red Cell Distribution Width 13.4 % (13.2-15.2)
[2018-03-27 06:44] LABS: Alanine Aminotransferase 19 units/L (7-56); Albumin 3.8 g/dL (3.9-5); BUN/Creatinine Ratio 11; Blood Urea Nitrogen 10 mg/dL (9-20); Calcium 7.8 mg/dL (8.4-10.2); Hemolysis Index 21
[2018-03-27 07:16] LABS: Platelet Count 161 K/mm3 (140-440)
--- NOTE | 2018-03-27 08:42 | Progress Note ---
Assessment and Plan Assessment and plan: Acute rhabdomyolysis. Patient was found lying on ground and cannot tell how long he was there. Creatine kinase 1977 today. repeat daily Acute metabolic encephalopathy, improving. He was confused on admission. Now awake,alert,oriented Bipolar disorder follows Psych as outpatient. PTSD. Follows psych as outpatient DVT priophylaxis with Lovenox. Full code status History Interval history: No more confusion Hospitalist Physical - Physical exam Narrative exam: General:Not in acute distress, lying in bed,obese HEENT:Normocephalic, atraumatic Neck:supple,no JVD Lungs: Clear to auscultation bilaterally,no wheeze Heart:S1 and S2 regular, no murmurs, rubs or gallop Abd: soft, non tender,non distended, normal bowel sounds Ext:no edema, no clubbing or cyanosis Neuro:Awake,alert,oriented x 3, moves all extremities, - Constitutional Vitals: Temp Pulse Resp BP Pulse Ox 99.9 F H 102 H 18 100/62 96 03/27/18 07:56 03/27/18 07:56 03/27/18 07:56 03/27/18 07:56 03/27/18 07:56 General appearance: Present: no acute distress Results - Labs CBC & Chem 7: 03/27/18 06:04 03/27/18 06:04 Labs: Laboratory Last Values WBC 8.5 K/mm3 (4.5-11.0) 03/27/18 06:04 RBC 4.41 M/mm3 (3.65-5.03) 03/27/18 06:04 Hgb 13.7 gm/dl (11.8-15.2) 03/27/18 06:04 Hct 41.2 % (35.5-45.6) 03/27/18 06:04 MCV 94 fl (84-94) 03/27/18 06:04 MCH 31 pg (28-32) 03/27/18 06:04 MCHC 33 % (32-34) 03/27/18 06:04 RDW 13.4 % (13.2-15.2) 03/27/18 06:04 Plt Count 161 K/mm3 (140-440) 03/27/18 06:04 Lymph % (Auto) 7.3 % (13.4-35.0) L 03/27/18 06:04 [place] % (Auto) 10.8 % (0.0-7.3) H 03/27/18 06:04 Eos % (Auto) 0.7 % (0.0-4.3) 03/27/18 06:04 Baso % (Auto) 0.4 % (0.0-1.8) 03/27/18 06:04 Lymph # 0.6 K/mm3 (1.2-5.4) L 03/27/18 06:04 [place] # 0.9 K/mm3 (0.0-0.8) H 03/27/18 06:04 Eos # 0.1 K/mm3 (0.0-0.4) 03/27/18 06:04 Baso # 0.0 K/mm3 (0.0-0.1) 03/27/18 06:04 Seg Neutrophils % 80.8 % (40.0-70.0) H 03/27/18 06:04 Seg Neutrophils # 6.8 K/mm3 (1.8-7.7) 03/27/18 06:04 Sodium 141 mmol/L (137-145) 03/27/18 06:04 Potassium 4.1 mmol/L (3.6-5.0) 03/27/18 06:04 Chloride 105.1 mmol/L (98-107) 03/27/18 06:04 Carbon Dioxide 21 mmol/L (22-30) L 03/27/18 06:04 Anion Gap 19 mmol/L 03/27/18 06:04 BUN 10 mg/dL (9-20) 03/27/18 06:04 Creatinine 0.9 mg/dL (0.8-1.5) 03/27/18 06:04 Estimated GFR > 60 ml/min 03/27/18 06:04 BUN/Creatinine Ratio 11 % 03/27/18 06:04 Glucose 122 mg/dL (75-100) H 03/27/18 06:04 Hemoglobin A1c 5.7 % (4-6) 03/26/18 17:41 Calcium 7.8 mg/dL (8.4-10.2) L 03/27/18 06:04 Total Bilirubin 0.50 mg/dL (0.1-1.2) 03/27/18 06:04 AST 39 units/L (5-40) 03/27/18 06:04 ALT 19 units/L (7-56) 03/27/18 06:04 Alkaline Phosphatase 91 units/L (35-129) 03/27/18 06:04 Ammonia 33.0 umol/L (25-60) 03/26/18 12:47 Total Creatine Kinase 1977 units/L (55-170) H 03/27/18 06:04 CK-MB (CK-2) 28.7 ng/mL (0.0-4.0) H 03/26/18 12:47 CK-MB (CK-2) Rel Index 1.2 (0-4) 03/26/18 12:47 Troponin T < 0.010 ng/mL (0.00-0.029) 03/26/18 12:47 Total Protein 6.2 g/dL (6.3-8.2) L 03/27/18 06:04 Albumin 3.8 g/dL (3.9-5) L 03/27/18 06:04 Albumin/Globulin Ratio 1.6 % 03/27/18 06:04 Urine Color Yellow (Yellow) 03/26/18 14:20 Urine Turbidity Clear (Clear) 03/26/18 14:20 Urine pH 5.0 (5.0-7.0) 03/26/18 14:20 Ur Specific [place] 1.016 (1.003-1.030) 03/26/18 14:20 Urine Protein <15 mg/dl mg/dL (Negative) 03/26/18 14:20 Urine Glucose (UA) Neg mg/dL (Negative) 03/26/18 14:20 Urine Ketones Neg mg/dL (Negative) 03/26/18 14:20 Urine Blood Sm (Negative) 03/26/18 14:20 Urine Nitrite Neg (Negative) 03/26/18 14:20 Urine Bilirubin Neg (Negative) 03/26/18 14:20 Urine Urobilinogen < 2.0 mg/dL (<2.0) 03/26/18 14:20 Ur Leukocyte Esterase Tr (Negative) 03/26/18 14:20 Urine WBC (Auto) 4.0 /HPF (0.0-6.0) 03/26/18 14:20 Urine RBC (Auto) 10.0 /HPF (0.0-6.0) 03/26/18 14:20 Uric Acid Crystals Few 03/26/18 14:20 Urine Mucus Few /HPF 03/26/18 14:20 Urine Yeast (Budding) Few /HPF 03/26/18 14:20 Urine Opiates Screen Presumptive negative 03/26/18 Unknown Urine Methadone Screen Presumptive negative 03/26/18 Unknown Ur Barbiturates Screen Presumptive negative 03/26/18 Unknown Ur Phencyclidine Scrn Presumptive negative 03/26/18 Unknown Ur Amphetamines Screen Presumptive positive 03/26/18 Unknown U Benzodiazepines Scrn Presumptive positive 03/26/18 Unknown Urine Cocaine Screen Presumptive negative 03/26/18 Unknown U Marijuana (THC) Screen Presumptive negative 03/26/18 Unknown Drugs of Abuse Note Disclamer 03/26/18 Unknown Plasma/Serum Alcohol < 0.01 % (0-0.07) 03/26/18 12:39
[2018-03-27] MEDS: PEPCID IV SCH (10:14)
[2018-03-27] MEDS: LaMICtal PO SCH (10:14)
[2018-03-27] MEDS: SODIUM CHLORIDE FLUSH SYRINGE 10 ML IV SCH ×2 (10:15→21:46)
[2018-03-27] MEDS: PERCOCET 5/325 PO PRN (13:58)
[2018-03-27] MEDS: LOVENOX SUB-Q SCH (21:46)
[2018-03-27] MEDS: PEPCID PO SCH (21:46)
[2018-03-28] MEDS: D5NS 1,000 ML IV SCH ×2 (02:45→14:25)
[2018-03-28] MEDS: LaMICtal PO SCH (10:39)
[2018-03-28] MEDS: XANAX PO PRN ×2 (10:39→18:20)
[2018-03-28] MEDS: PEPCID PO SCH (10:40)
[2018-03-28] MEDS: SODIUM CHLORIDE FLUSH SYRINGE 10 ML IV SCH (10:40)
--- NOTE | 2018-03-28 11:00 | Progress Note ---
Assessment and Plan Assessment and plan: Acute rhabdomyolysis. Patient was found lying on ground and cannot tell how long he was there. Creatine kinase 1926 today. repeat daily Acute metabolic encephalopathy, improving. He was confused on admission. Now awake,alert,oriented Bipolar disorder follows Psych as outpatient. PTSD. Follows psych as outpatient. Amhetamines in Urine. Patient denies using amphetamine. He states positive urine is false positive because of Wellbutrin he is using. DVT prophylaxis with Lovenox. Full code status History Interval history: No more confusion, feels tired Hospitalist Physical - Physical exam Narrative exam: General:Not in acute distress, lying in bed,obese HEENT:Normocephalic, atraumatic Neck:supple,no JVD Lungs: Clear to auscultation bilaterally,no wheeze Heart:S1 and S2 regular, no murmurs, rubs or gallop Abd: soft, non tender,non distended, normal bowel sounds Ext:no edema, no clubbing or cyanosis Neuro:Awake,alert,oriented x 3, moves all extremities, - Constitutional Vitals: Temp Pulse Resp BP Pulse Ox 98.6 F 72 18 131/86 100 03/28/18 07:26 03/28/18 07:26 03/28/18 07:26 03/28/18 07:26 03/28/18 07:26 General appearance: Present: no acute distress Results - Labs CBC & Chem 7: 03/27/18 06:04 03/27/18 06:04 Labs: Laboratory Last Values WBC 8.5 K/mm3 (4.5-11.0) 03/27/18 06:04 RBC 4.41 M/mm3 (3.65-5.03) 03/27/18 06:04 Hgb 13.7 gm/dl (11.8-15.2) 03/27/18 06:04 Hct 41.2 % (35.5-45.6) 03/27/18 06:04 MCV 94 fl (84-94) 03/27/18 06:04 MCH 31 pg (28-32) 03/27/18 06:04 MCHC 33 % (32-34) 03/27/18 06:04 RDW 13.4 % (13.2-15.2) 03/27/18 06:04 Plt Count 161 K/mm3 (140-440) 03/27/18 06:04 Lymph % (Auto) 7.3 % (13.4-35.0) L 03/27/18 06:04 [place] % (Auto) 10.8 % (0.0-7.3) H 03/27/18 06:04 Eos % (Auto) 0.7 % (0.0-4.3) 03/27/18 06:04 Baso % (Auto) 0.4 % (0.0-1.8) 03/27/18 06:04 Lymph # 0.6 K/mm3 (1.2-5.4) L 03/27/18 06:04 [place] # 0.9 K/mm3 (0.0-0.8) H 03/27/18 06:04 Eos # 0.1 K/mm3 (0.0-0.4) 03/27/18 06:04 Baso # 0.0 K/mm3 (0.0-0.1) 03/27/18 06:04 Seg Neutrophils % 80.8 % (40.0-70.0) H 03/27/18 06:04 Seg Neutrophils # 6.8 K/mm3 (1.8-7.7) 03/27/18 06:04 Sodium 141 mmol/L (137-145) 03/27/18 06:04 Potassium 4.1 mmol/L (3.6-5.0) 03/27/18 06:04 Chloride 105.1 mmol/L (98-107) 03/27/18 06:04 Carbon Dioxide 21 mmol/L (22-30) L 03/27/18 06:04 Anion Gap 19 mmol/L 03/27/18 06:04 BUN 10 mg/dL (9-20) 03/27/18 06:04 Creatinine 0.9 mg/dL (0.8-1.5) 03/27/18 06:04 Estimated GFR > 60 ml/min 03/27/18 06:04 BUN/Creatinine Ratio 11 % 03/27/18 06:04 Glucose 122 mg/dL (75-100) H 03/27/18 06:04 Hemoglobin A1c 5.7 % (4-6) 03/26/18 17:41 Calcium 7.8 mg/dL (8.4-10.2) L 03/27/18 06:04 Total Bilirubin 0.50 mg/dL (0.1-1.2) 03/27/18 06:04 AST 39 units/L (5-40) 03/27/18 06:04 ALT 19 units/L (7-56) 03/27/18 06:04 Alkaline Phosphatase 91 units/L (35-129) 03/27/18 06:04 Ammonia 33.0 umol/L (25-60) 03/26/18 12:47 Total Creatine Kinase 1926 units/L (55-170) H 03/28/18 06:56 CK-MB (CK-2) 28.7 ng/mL (0.0-4.0) H 03/26/18 12:47 CK-MB (CK-2) Rel Index 1.2 (0-4) 03/26/18 12:47 Troponin T < 0.010 ng/mL (0.00-0.029) 03/26/18 12:47 Total Protein 6.2 g/dL (6.3-8.2) L 03/27/18 06:04 Albumin 3.8 g/dL (3.9-5) L 03/27/18 06:04 Albumin/Globulin Ratio 1.6 % 03/27/18 06:04 Urine Color Yellow (Yellow) 03/26/18 14:20 Urine Turbidity Clear (Clear) 03/26/18 14:20 Urine pH 5.0 (5.0-7.0) 03/26/18 14:20 Ur Specific [place] 1.016 (1.003-1.030) 03/26/18 14:20 Urine Protein <15 mg/dl mg/dL (Negative) 03/26/18 14:20 Urine Glucose (UA) Neg mg/dL (Negative) 03/26/18 14:20 Urine Ketones Neg mg/dL (Negative) 03/26/18 14:20 Urine Blood Sm (Negative) 03/26/18 14:20 Urine Nitrite Neg (Negative) 03/26/18 14:20 Urine Bilirubin Neg (Negative) 03/26/18 14:20 Urine Urobilinogen < 2.0 mg/dL (<2.0) 03/26/18 14:20 Ur Leukocyte Esterase Tr (Negative) 03/26/18 14:20 Urine WBC (Auto) 4.0 /HPF (0.0-6.0) 03/26/18 14:20 Urine RBC (Auto) 10.0 /HPF (0.0-6.0) 03/26/18 14:20 Uric Acid Crystals Few 03/26/18 14:20 Urine Mucus Few /HPF 03/26/18 14:20 Urine Yeast (Budding) Few /HPF 03/26/18 14:20 Urine Opiates Screen Presumptive negative 03/26/18 Unknown Urine Methadone Screen Presumptive negative 03/26/18 Unknown Ur Barbiturates Screen Presumptive negative 03/26/18 Unknown Ur Phencyclidine Scrn Presumptive negative 03/26/18 Unknown Ur Amphetamines Screen Presumptive positive 03/26/18 Unknown U Benzodiazepines Scrn Presumptive positive 03/26/18 Unknown Urine Cocaine Screen Presumptive negative 03/26/18 Unknown U Marijuana (THC) Screen Presumptive negative 03/26/18 Unknown Drugs of Abuse Note Disclamer 03/26/18 Unknown Plasma/Serum Alcohol < 0.01 % (0-0.07) 03/26/18 12:39
[2018-03-28] MEDS: PERCOCET 5/325 PO PRN (14:23)
[2018-03-29] MEDS: D5NS 1,000 ML IV SCH ×3 (00:02→23:31)
[2018-03-29] MEDS: RESTORIL PO PRN ×2 (00:03→21:19)
[2018-03-29] MEDS: PEPCID PO SCH ×3 (00:03→21:19)
[2018-03-29] MEDS: PERCOCET 5/325 PO PRN ×4 (00:03→20:42)
[2018-03-29] MEDS: LOVENOX SUB-Q SCH ×2 (00:04→21:18)
[2018-03-29] MEDS: SODIUM CHLORIDE FLUSH SYRINGE 10 ML IV SCH ×3 (00:05→23:32)
[2018-03-29] MEDS: XANAX PO PRN ×3 (07:06→20:42)
[2018-03-29 07:34] LABS: BUN/Creatinine Ratio 6; Blood Urea Nitrogen 5 mg/dL (9-20); Calcium 7.6 mg/dL (8.4-10.2); Hemolysis Index 3
[2018-03-29] MEDS: LaMICtal PO SCH (10:00)
[2018-03-29] MEDS ORDERED: K-DUR PO ONE (15:00)
--- NOTE | 2018-03-29 15:27 | Progress Note ---
Assessment and Plan /Acute rhabdomyolysis. Patient was found lying on ground and cannot tell how long he was there. Creatine kinase improving. repeat daily consulted PT /Acute metabolic encephalopathy, improving. He was confused on admission. Now awake,alert,oriented could be from medication overdose/drug abuse also psych consult pending Bipolar disorder follows Psych as outpatient. - psych consulted PTSD. Follows psych as outpatient. - cont home meds Amhetamines in Urine. -Patient denies using amphetamine. He states positive urine is false positive because of Wellbutrin he is using. DVT prophylaxis with Lovenox. Full code status Brief history: 46-year-old male with history of PTSD brought in because patient was found lying in the front yard. Patient says that he was seizing and dog out of the car and tried to jump and fell on. Patient admitted taking Xanax and Ciprodex prior and subsequently with altered sensorium. Hospitalist Physical General:Not in acute distress, lying in bed,obese HEENT:Normocephalic, atraumatic Neck:supple,no JVD Lungs: Clear to auscultation bilaterally,no wheeze Heart:S1 and S2 regular, no murmurs, rubs or gallop Abd: soft, non tender,non distended, normal bowel sounds Ext:no edema, no clubbing or cyanosis Neuro:Awake,alert,oriented x 3, moves all extremities, Subjective Date of service: 03/29/18 Interval history: Patient seen and examined. Medical records and medication list reviewed. No acute event overnight noted by the RN. Patient denies any chest pain or difficulty breathing. Patient is tolerating diet. Patient complains of generalized weakness, Discussed plan of care at bedside with patient. Objective - Constitutional Vitals: Vital Signs - 12hr 03/29/18 03/29/18 07:34 11:38 Temperature 98.1 F 98.2 F Pulse Rate 63 80 Respiratory 18 20 Rate Blood Pressure 137/97 Blood Pressure 123/84 [Left] O2 Sat by Pulse 100 Oximetry - Labs CBC & Chem 7: 03/27/18 06:04 03/29/18 06:16 Labs: Abnormal lab results 03/29/18 Range/Units 06:16 Potassium 3.4 L (3.6-5.0) mmol/L BUN 5 L (9-20) mg/dL Calcium 7.6 L (8.4-10.2) mg/dL Total Creatine Kinase 1005 H (55-170) units/L
--- NOTE | 2018-03-29 17:13 | Consultation ---
History of Present Illness - Reason for Consult Consult date: 03/29/18 Reason for consult: Mental Health Evaluation Requesting physician: SINDY BATRES - Chief Complaint Chief complaint: "How are you" - History of Present Psychiatric Illness 47-year-old male presenting with a chief complaint of fall. Today the patient is calm and cooperative during the assessment. He stated that he fell at home going to his mailbox. He stated that he has Vertigo.He stated that he was dx with Bipolar DO and HARRY several yrs ago. He stated having a psychiatrist and compliant with his medications. He stated that he take up to 4 mg of Xanax a day for anxiety. He denies SI/HI's and AVH's. He denies erratic sleep and a poor appetite. He denies recreational drug use, but was positive for amphetamines. He is adamant that he does not use recreational drugs. He denies alcohol consumption (etoh). Medications and Allergies Allergies Allergy/AdvReac Type Severity Reaction Status Date / Time prednisone AdvReac Vomiting Verified 08/30/17 02:34 Home Medications Medication Instructions Recorded Confirmed Last Taken Type ALPRAZolam [Xanax TAB] 1 mg PO TID PRN 08/30/17 08/30/17 Unknown History Amoxicillin/K Clav Tab [Augmentin 1 tab PO Q12HR #10 tab 08/30/17 Unknown Rx 875 mg] HYDROcodone/APAP 5-325 [Buhler 1 each PO Q6HR PRN #15 tablet 08/30/17 Unknown Rx 5/325] Triazolam 0.125 mg PO PRN PRN 08/30/17 08/30/17 Unknown History lamoTRIgine [LaMICtal] 150 mg PO QDAY 08/30/17 08/30/17 Unknown History Active Meds: Active Medications Acetaminophen (Tylenol) 650 mg PO Q4H PRN PRN Reason: Pain MILD(1-3)/Fever >100.5/NELSON Alprazolam (Xanax) 1 mg PO TID PRN PRN Reason: Anxiety Last Admin: 03/29/18 14:55 Dose: 1 mg Enoxaparin Sodium (Lovenox) 40 mg SUB-Q QDAY@2200 [facility] Last Admin: 03/29/18 00:04 Dose: 40 mg Famotidine (Pepcid) 20 mg PO BID [facility] Last Admin: 03/29/18 10:00 Dose: 20 mg Dextrose/Sodium Chloride (D5ns) 1,000 mls @ 125 mls/hr IV DIRECT [facility] Last Admin: 03/29/18 07:08 Dose: 125 mls/hr Lamotrigine (Lamictal) 150 mg PO QDAY [facility] Last Admin: 03/29/18 10:00 Dose: 150 mg Ondansetron HCl (Zofran) 4 mg IV Q8H PRN PRN Reason: Nausea And Vomiting Oxycodone/Acetaminophen (Percocet 5/325) 1 tab PO Q6H PRN PRN Reason: Pain, Moderate (4-6) Last Admin: 03/29/18 13:15 Dose: 1 tab Sodium Chloride (Sodium Chloride Flush Syringe 10 Ml) 10 ml IV BID [facility] Last Admin: 03/29/18 10:01 Dose: 10 ml Sodium Chloride (Sodium Chloride Flush Syringe 10 Ml) 10 ml IV PRN PRN PRN Reason: LINE FLUSH Temazepam (Restoril) 15 mg PO QHS PRN PRN Reason: Sleep Last Admin: 03/29/18 00:03 Dose: 15 mg Past psychiatric history - Past Medical History Past Medical History: other (Knee and Ankle pain, Vertigo) Past Surgical History: Other (Knee and Ankle Surgery) - past Psychiatric treatment and history psychiatric treatment history: The patient is seen outpatient by Dr Esequiel Benavides. He denies a fam psy hx. - Social History Social history: lives with family Mental Status Exam - Vital signs Last Vital Signs Temp 98.9 F 03/29/18 15:53 Pulse 56 L 03/29/18 15:53 Resp 18 03/29/18 15:53 BP 128/89 03/29/18 15:53 Pulse Ox 100 03/29/18 07:34 - Exam Narrative exam: MSE: Appearance: calm, cooperative Behavior: regular eye contact Speech: regular rate and tone Mood: "okay" Affect: congruent to mood Thought Process: logical Thought Content: denies SI/HI's and AVH's Motor Activity: ambulatory Cognition: A/O x 3 Insight: appropriate Judgment: appropriate Results Result Diagrams: 03/27/18 06:04 03/29/18 06:16 Abnormal lab results 03/29/18 Range/Units 06:16 Potassium 3.4 L (3.6-5.0) mmol/L BUN 5 L (9-20) mg/dL Calcium 7.6 L (8.4-10.2) mg/dL Total Creatine Kinase 1005 H (55-170) units/L All other labs normal. Assessment and Plan Assessment and plan: Impression: Hx of Bipolar DO and HARRY. Today the patient is calm and cooperative during the assessment. Patient positive for amphetamines. Recommendation/Plan: Continue current home medication regimen Lamictal and Xanax. Discussed SJS with patient reference Lamictal.
[2018-03-30] MEDS: D5NS 1,000 ML IV SCH ×2 (04:31→06:58)
[2018-03-30] MEDS: PERCOCET 5/325 PO PRN ×2 (04:33→12:38)
[2018-03-30] MEDS: XANAX PO PRN ×3 (05:05→15:30)
[2018-03-30] MEDS: PEPCID PO SCH (10:39)
[2018-03-30] MEDS: LaMICtal PO SCH (10:39)
[2018-03-30] MEDS: SODIUM CHLORIDE FLUSH SYRINGE 10 ML IV SCH (10:40)
--- NOTE | 2018-03-30 12:32 | Discharge Summary ---
Providers - Providers Date of Admission: 03/26/18 17:10 Date of discharge: 03/30/18 Attending physician: MICKIE MATA 03/27/18 14:38 Consult to Mental Health [CONS] Routine Reason For Exam: psychosis Place consult to:: mental health Notified:: Jillian Phone number called:: [phone] Was contact made?: Yes If yes, spoke with:: JILLIAN Time called:: 10:33 03/29/18 14:32 Physical Therapy Evaluation and Treat [CONS] Routine Comment: Reason For Exam: placement 03/29/18 17:22 Occupational Therapy Evaluate and Treat [CONS] Routine Comment: Reason For Exam: Debility Primary care physician: SENIOR DATA MODELER Hospitalization Condition: Fair Hospital course: Brief history: 46-year-old male with history of PTSD brought in because patient was found lying in the front yard. Patient admitted taking Xanax and Ciprodex prior to the event and suspect that might also subsequently caused altered sensorium. In the ER patient noted to have elevated CPK. CT head and cervical CT did not show any acute process. He was placed on IV fluid hydration, CPK level was monitored and trended down. Physical therapy was consulted and recommended home health. Psychiatry was consulted and evaluated the patient. He was cleared for discharge. He'll continue his home medications and will follow-up with his psychiatrist outpatient. Discharge diagnosis and management: /Acute rhabdomyolysis. Patient was found lying on ground and couldnot tell how long he was there. Creatine kinase was elevated on admission, placed on IV fluids Creatine kinase improved with hydration. Patient complaint of muscle pain and generalized sickness consulted PT and recommended home health /Acute metabolic encephalopathy, improving. He was confused on admission. Now awake,alert,oriented could be from medication overdose/drug abuse also Counseled on discharge, psych evaluated the patient and cleared for discharge Bipolar disorder follows Psych as outpatient. - psych consulted and recommended to continue home medications PTSD. Follows psych as outpatient. - cont home meds Amphetamines in Urine. -Patient denies using amphetamine. He states positive urine is false positive because of Wellbutrin he is using. DVT prophylaxis with Lovenox. Radiological data: Head CT, no intracranial process Cervical CT, cervical spondylosis no fracture Hospitalist Physical General:Not in acute distress, lying in bed,obese HEENT:Normocephalic, atraumatic Neck:supple,no JVD Lungs: Clear to auscultation bilaterally,no wheeze Heart:S1 and S2 regular, no murmurs, rubs or gallop Abd: soft, non tender,non distended, normal bowel sounds Ext:no edema, no clubbing or cyanosis Neuro:Awake,alert,oriented x 3, moves all extremities, Disposition: [id number]/TX-06 HOME UNDER HOME HLTH Time spent for discharge: 32 minutes Core Measure Documentation - Palliative Care Palliative Care/ Comfort Measures: Not Applicable - Core Measures Any of the following diagnoses?: none Exam - Constitutional Vitals: Temp Pulse Resp BP Pulse Ox 98.6 F 86 19 110/58 96 03/30/18 07:36 03/30/18 04:10 03/30/18 07:36 03/30/18 07:36 03/30/18 04:10 Plan Activity: advance as tolerated, fall precautions Weight Bearing Status: Weight Bear as Tolerated Diet: low fat, low salt Additional Instructions: Follow-up with psychiatrist outpatient in 1 week Follow up with: PRIMARY CAREMD [Primary Care Provider] - 3-5 Days
--- NOTE | 2018-03-30 13:30 | Progress Note ---
Subjective - Reason for Consult Consult date: 03/30/18 Reason for consult: Psychiatric Follow-up Evaluation - Chief Complaint Chief complaint: 47-year-old male presenting with a chief complaint of fall. Today the patient is calm and cooperative during the assessment. He stated that he fell at home going to his mailbox. Mental Status Exam - Vital signs Last Vital Signs Temp 98.6 F 03/30/18 07:36 Pulse 86 03/30/18 04:10 Resp 19 03/30/18 07:36 BP 110/58 03/30/18 07:36 Pulse Ox 96 03/30/18 04:10 - Exam Narrative exam: Mental Status Exam Appearance: calm, cooperative Behavior: regular eye contact Speech: regular rate and tone Mood: "okay" Affect: congruent to mood Thought Process: logical Thought Content: denies SI/HI's and AVH's Motor Activity: ambulatory Cognition: A/O x 3 Insight: appropriate Judgment: appropriate Assessment and Plan Impression: Hx of Bipolar DO and HARRY. Today the patient is calm and cooperative during the assessment. Patient positive for amphetamines. Recommendation/Plan: Continue current home medication regimen Lamictal and Xanax. Discussed SJS with patient reference Lamictal.
[2018-03-30 15:43] VITALS: BP 143/98
== END 2018-03-30 16:30 | disposition home health service (06) | DRG 557 ==
LOC: EDBD 11:42 → ED 11:42 → 3A 17:10
PROVIDERS: ADMIT Internal Medicine; ATTEND Internal Medicine
DX: M62.82 Rhabdomyolysis (principal); G93.41 Metabolic encephalopathy; F43.10 Post-traumatic stress disorder, unspecified; F41.1 Generalized anxiety disorder; F31.9 Bipolar disorder, unspecified; F15.90 Other stimulant use, unspecified, uncomplicated; Z88.8 Allergy status to other drugs, medicaments and biological substances
CPT/HCPCS: 36415; 70450; 72125; 80048; 80053; 80307; 80320; 81001; 82140; 82550; 82553; 83036; 84484; 85025; 90715; 93005; 93010; 96360; G0480; J1650; J7030; J7042